=== PATIENT | male | born 1940 | race Caucasian/White ===

== ENCOUNTER → 2016-04-25 | Outpatient (CLI) | payer OTHER ==
--- NOTE | 2016-04-25 12:45 | DX ---
Left shoulder, 3 views. History: Left shoulder pain. Fall yesterday. Findings: Normal mineralization and alignment. Nondisplaced fracture of the greater tuberosity. Gleno humeral articulation is unremarkable. Anterior curved acromion. Minimal degenerative change acromiocl avicular joint. Impression: Nondisplaced greater tuberosity fracture.
== END ==
LOC: BMCIMAGING 11:48
PROVIDERS: ATTEND Nurse Practitioner Adult Health
DX: S42.255A Nondisplaced fracture of greater tuberosity of left humerus, initial encounter for closed fracture (principal)

== ENCOUNTER → 2016-05-06 | Outpatient (CLI) | payer OTHER | LOC: BMCIMAGING 14:05 | PROVIDERS: ATTEND Physician Assistant | DX: S42.255D Nondisplaced fracture of greater tuberosity of left humerus, subsequent encounter for fracture with routine healing (principal) ==

== ENCOUNTER → 2016-06-03 | Outpatient (CLI) | payer OTHER | LOC: BMCIMAGING 13:37 | PROVIDERS: ATTEND Physician Assistant | DX: S42.255 Nondisplaced fracture of greater tuberosity of left humerus (principal) ==